=== PATIENT | male | born 1945 ===

== ENCOUNTER 2022-01-09 18:34 | Outpatient (REF) | payer MEDICARE, BC, SELFPAY ==
[2022-01-09 22:51] LABS: Rheumatoid Factor 24.5 IU/mL (<12.0)
[2022-01-12 11:07] LABS: Cyclic Citrullinated Peptide <2.5 U/mL (<5.0)
[2022-01-12 16:17] LABS: ANA Interpretation Positive (Negative); ANA Titer Pattern 1:160 Homogeneous
[2022-01-13 13:18] LABS: dsDNA Ab, IgG <12.3 IU/mL (<30.0)
== END 2022-01-09 18:35 | disposition home or self-care (01) ==
LOC: LBN 18:34
PROVIDERS: PCP Family Medicine; Visit Provider Student in an Organized Health Care Education/Training Program
DX: J84.9 Interstitial pulmonary disease, unspecified (principal)
CPT/HCPCS: 86200; 86038; 86225; 86431

== ENCOUNTER 2022-05-25 18:41 | Outpatient (REF) | payer MEDICARE, BC, SELFPAY ==
[2022-05-28 12:03] LABS: SS-B (La) Ab, IgG 1.9 Units (<20.0)
[2022-05-28 12:18] LABS: SS-A Antibody 2.1 Units (<20.0)
[2022-05-28 19:06] LABS: Scl 70 Antibodies, IgG <0.2 U
[2022-06-15 18:10] LABS: Anti-EJ Ab Negative (Negative); Anti-Jo-1 Ab <20 Units (<20); Anti-Ku Ab Negative (Negative); Anti-MDA-5 Ab (CADM-140) <20 Units (<20); Anti-Mi-2-Ab Negative (Negative); Anti-NXP-2 (P140) Ab <20 Units (<20); Anti-OJ Ab Negative (Negative); Anti-PL-12 Ab Negative (Negative); Anti-PL-7 Ab Negative (Negative); Anti-PM/Scl-100 Ab <20 Units (<20); Anti-SRP Ab Negative (Negative); Anti-SS-A 52kD Ab, IgG <20 Units (<20); Anti-TIF-1gamma Ab <20 Units (<20); Anti-U1 RNP Ab <20 Units (<20); Anti-U2 RNP Ab Negative (Negative); Anti-U3 RNP (Fibrillarin) Negative (Negative)
== END 2022-05-25 18:42 | disposition home or self-care (01) ==
LOC: LBN 18:41
PROVIDERS: PCP Family Medicine; Visit Provider Student in an Organized Health Care Education/Training Program
DX: J84.9 Interstitial pulmonary disease, unspecified (principal); R06.09 Other forms of dyspnea; R91.1 Solitary pulmonary nodule
CPT/HCPCS: 83516; 86235

== ENCOUNTER → 2023-11-25 08:46 | Outpatient (BNVA) | payer MEDICARE, BC, SELFPAY | PROVIDERS: PCP Family Medicine; Referring Provider Family Medicine; Visit Provider Student in an Organized Health Care Education/Training Program | DX: J84.9 Interstitial pulmonary disease, unspecified (principal); R06.00 Dyspnea, unspecified; R91.1 Solitary pulmonary nodule | CPT/HCPCS: 99214 ==

== ENCOUNTER → 2024-02-23 09:17 | Outpatient (BNVA) | payer MEDICARE, BC, SELFPAY | PROVIDERS: PCP Family Medicine; Referring Provider Family Medicine; Visit Provider Physician Assistant Surgical | DX: R06.00 Dyspnea, unspecified (principal); J84.9 Interstitial pulmonary disease, unspecified; R91.1 Solitary pulmonary nodule; R07.9 Chest pain, unspecified | CPT/HCPCS: 99214 ==

== ENCOUNTER → 2024-05-25 08:59 | Outpatient (BNVA) | payer MEDICARE, BC, SELFPAY | PROVIDERS: PCP Family Medicine; Referring Provider Family Medicine; Visit Provider Physician Assistant Surgical | DX: J84.9 Interstitial pulmonary disease, unspecified (principal); R06.00 Dyspnea, unspecified; R91.1 Solitary pulmonary nodule; R07.9 Chest pain, unspecified | CPT/HCPCS: 99214 ==

== ENCOUNTER → 2024-12-13 08:06 | Outpatient (BNVA) | payer MEDICARE, BC, SELFPAY | PROVIDERS: PCP Family Medicine; Referring Provider Family Medicine; Visit Provider Physician Assistant Surgical | DX: J84.9 Interstitial pulmonary disease, unspecified (principal); R91.1 Solitary pulmonary nodule; R06.00 Dyspnea, unspecified; R07.9 Chest pain, unspecified | CPT/HCPCS: 99214 ==

== ENCOUNTER → 2025-06-13 08:03 | Outpatient (BNVA) | payer MEDICARE, BC, SELFPAY | PROVIDERS: PCP Family Medicine; Referring Provider Family Medicine; Visit Provider Physician Assistant Surgical | DX: J84.9 Interstitial pulmonary disease, unspecified (principal); R91.1 Solitary pulmonary nodule; R07.9 Chest pain, unspecified; K21.9 Gastro-esophageal reflux disease without esophagitis | CPT/HCPCS: 99214 ==